=== PATIENT | female | born 1955 | race Caucasian/White ===

== ENCOUNTER 2024-11-11 15:20 | Emergency (ER) | payer BC, SELFPAY ==
[2024-11-11 15:26] VITALS: BP 172/89
[2024-11-11 16:55] VITALS: BMI 33.3
--- NOTE | 2024-11-11 17:10 | ED.GENMED ---
History of Present Illness
General
Chief Complaint: DVT/Possible Blood Clot
Source: patient
Exam Limitations: none
Time Seen by Provider: 11/11/24 16:30
Nursing documentation reviewed up to this point in time: agreed with
History of Present Illness
History of Present Illness:
69-year-old female with no clinically significant past medical history presents for a palpable mass in her right mid calf. Denies chest pain or shortness of breath. Denies fever or chills.
Past History
Past History
ED Past Medical History: Asthma
ED Past Surgical History: Cholecystectomy
Social History
Tobacco: Non-smoker
Alcohol: None
Personal: Single
Living: alone
Review of Systems
Review of Systems
Allergies reviewed?: Yes
All Other Systems: ROS reviewed and negative except as documented in HPI and ROS
Respiratory: Denies trouble breathing
Cardiac: Denies chest pain
Skin: Reports other (feels lump mid right calf)
Phy Exam
Physical Exam
Physical Exam:
GENERAL: No acute distress. A&Ox3.
CONSTITUTIONAL: Afebrile.
RESPIRATORY: Regular respirations, nonlabored, lungs clear.
CARDIOVASCULAR: Regular rate and rhythm, no murmurs, no rubs.
GI: Soft, nontender, normal BS
MUSCULOSKELETAL: No calf tenderness, no redness or swelling. Moves with ease. Well perfused.
SKIN: Warm, dry, pink. There is a palpable nodule the size of a pea mid right calf that patient is concerned about. Nontender, no redness.
PSYCH: Normal mood and affect. Well kept, interactive and appropriate
NEUROLOGIC: Awake, alert and oriented. No focal neurological deficits
Course
Orders/Labs/Results
Orders:
Orders
11/11/24 15:22
Legs, Right US [US Periph Venous LOWER Ext RT] Urgent
Comment:
Reason For Exam: swelling
Vital Signs
Initial and Last Documented VS:
Initial Vital Signs
Temp Pulse Resp BP Pulse Ox
98.3 F 88 16 172/89 99
11/11/24 15:26 11/11/24 15:26 11/11/24 15:26 11/11/24 15:26 11/11/24 15:26
Last Documented Vital Signs
Temp Pulse Resp BP Pulse Ox
98.3 F 88 16 172/89 99
11/11/24 15:26 11/11/24 15:26 11/11/24 15:26 11/11/24 15:26 11/11/24 15:26
MDM/Problems Addressed
Differential Diagnosis Includes:
Fatty lipoma, sebaceous cyst, DVT
MDM/Problems Addressed:
69-year-old female with no clinically significant past medical history presents for a palpable mass in her right mid calf. Denies chest pain or shortness of breath. Denies fever or chills.
Ultrasound negative for DVT
Exam is consistent with either a fatty lipoma or a cyst. No cellulitis, no tenderness, patient ambulating well
*Critical Care Note
Total Time (30-74mins, 75-104mins- exclusive of procedures): Not Applicable
ED Attending Note
-
Portions of this chart may have been created with voice recognition software.� Occasional wrong word or��sound alike� substitutions may have occurred due to the inherent limitations of voice recognition software.
Discharge Plan
Departure
Patient Disposition: Home (Routine Discharge)
Date of Disposition: 11/11/24
Time of Disposition: 17:03
Patient with high blood pressure during this ER visit?: Yes
Condition: Good
Discharge Problem:
Right calf pain
Referrals:
Lenard Moore, DO [Family Provider]
Activity Restrictions/Additional Instructions:
As we discussed, your ultrasound shows no clots.
The pea sized lump you feel is most likely a fatty cyst. Nothing worrisome
Interventions
Interventions:
*Risk Screen - Suicide Last Done: 11/11/24 15:26
*General Assessment Last Done: 11/11/24 15:26
*Neglect/Abuse Screening Last Done: 11/11/24 15:26
*ED- Fall Risk Assessment Last Done: 11/11/24 16:55
*ED COVID-19 Vaccine History Last Done: 11/11/24 16:55
*Nursing Disposition Last Done: 11/11/24 17:15
ED- Cardiac Assessment Last Done: 11/11/24 16:59
ED- Pulmonary Assessment Last Done: 11/11/24 16:59
ED-Peripheral Vascular Assessment Last Done: 11/11/24 16:59
ED-Skin Assessment Last Done: 11/11/24 16:59
Discharge Date and Time
Discharge Date/Time: 11/11/24 17:15
Print Language: LAO
== END 2024-11-11 17:15 | disposition home or self-care (01) ==
LOC: EMR 15:20
PROVIDERS: EMERGENCY PHYSICIAN Emergency Medicine; FAMILY PHYSICIAN Internal Medicine
DX: M79.661 Pain in right lower leg (principal); R22.41 Localized swelling, mass and lump, right lower limb; J45.909 Unspecified asthma, uncomplicated; Z90.49 Acquired absence of other specified parts of digestive tract
CPT/HCPCS: 99284; 93971